=== PATIENT | male | born 1975 | race Asian ===

== ENCOUNTER 2016-06-13 18:22 | Emergency (ER) | payer OTHER ==
[2016-06-13 18:46] VITALS: BP 143/101; PULSE 84; RESP 16; TEMP 98.1; O2SAT 95
[2016-06-13] MEDS ORDERED: CEPHALEXIN 500 MG CAP PO ONE (19:19)
--- NOTE | 2016-06-13 19:19 | UCPHY ---
H & P Time Seen by Provider: 06/13/16 18:46 Patient Type: Established HPI/ROS: This patient complains of right 5th toe redness and mild discomfort and swelling. He explains that he started swimming over the past week or so in the [facility] and thinks that he has athlete's foot complicated by infection. He started spraying antifungal spray on to the interdigital region between the 4th and 5th toe 2 days ago and today but despite this has persistent appearance of athlete's foot between the toe and again now has new redness and swelling to the toe. He states the discomfort is mild. ROS: No other skin lesions. No fevers. 5 point ROS is otherwise negative. Past Medical/Surgical History: Otherwise healthy Smoking Status: Unknown if ever smoked Physical Exam: Physical Exam Vital signs are normal. General: No acute distress Cardiac: Brisk capillary refill is intact throughout. Skin: Patient has confluent erythema to the 5th toe right foot with mild warmth associated with this. There is dry skin between the 4th and 5th toe on the affected side with scaly desquamation appears consistent with tinea pedis Extremities: Atraumatic normal except for 5th toe 5th toe: No bony tenderness. There is mild swelling and skin findings as described. Neuro: Alert with no sensorimotor deficits to the affected toe. Differential diagnosis: Tinea pedis with cellulitis versus inflammation attributable to the tinea pedis Constitutional: Initial Vital Signs Temperature (C) 36.7 C 06/13/16 18:44 Heart Rate 84 06/13/16 18:44 Respiratory Rate 16 06/13/16 18:44 Blood Pressure 143/101 H 06/13/16 18:44 O2 Sat (%) 95 06/13/16 18:44 O2 Delivery Mode Room Air Allergies/Adverse Reactions: No Known Allergies Allergy (Verified 06/13/16 18:46) Home Medications: Medication Instructions Recorded Cephalexin [Keflex (*)] 500 mg PO TID #30 cap 06/13/16 Wellbutrin Sr 06/13/16 MDM/Departure - MDM Medications Given: Discontinued Medications Cephalexin HCl (Keflex) 500 mg PO EDNOW ONE PRN Reason: Protocol Stop: 06/13/16 19:20 Last Admin: 06/13/16 19:25 Dose: 500 mg ED Course/Re-evaluation: Patient is given a 1st dose of Keflex for what appears to be an isolated 5th toe cellulitis complicating localized tinea pedis. I counseled the patient regarding this diagnosis and treatment plan clinically there is no evidence of osteomyelitis or other concerning findings. - Depart Disposition: Home, Routine, Self-Care Clinical Impression: Cellulitis, toe Qualifiers: Laterality: right Qualified Code(s): L03.031 - Cellulitis of right toe Tinea pedis Qualifiers: Laterality: right Qualified Code(s): B35.3 - Tinea pedis Condition: Good Instructions: Tinea Pedis (ED), Cellulitis (ED) Additional Instructions: Diagnosis: 1. Tinea pedis 2. Cellulitis of toe Plan: Clean the area daily and will and dry daily. Apply Lotrimin Ultra cream. Take Keflex antibiotic in addition Return for any significant worsening despite treatment plan Prescriptions: Cephalexin [Keflex (*)] 500 mg PO TID #30 cap Referrals: Janine Iqbal DO [Primary Care Provider] - As per Instructions - PQRS PQRS Measurement: NA
== END 2016-06-13 19:37 | disposition home or self-care (01) ==
LOC: CED 18:22
DX: B35.3 Tinea pedis (principal); L03.031 Cellulitis of right toe
CPT/HCPCS: 99214-PO; G0463-PO